=== PATIENT | female | born 1955 | race Caucasian/White ===

== ENCOUNTER 2016-10-16 23:36 | Emergency (ER) | payer OTHER ==
[~2016-10-16] VITALS: Ht 162.6 cm; Wt 64.2 kg
[2016-10-16 23:38] VITALS: BP 154/80; PULSE 69; TEMP 36.5; O2SAT 97; Ht 162.6 cm; Wt 64.2 kg
[2016-10-16] MEDS ORDERED: CIPROFLOXACIN 500 MG TAB PO STA (23:58)
[2016-10-16] MEDS ORDERED: PHENAZOPYRIDINE HCL 200 MG TAB PO STA (23:58)
--- NOTE | 2016-10-16 23:59 | EMERGENCY ROOM VISIT NOTE ---
History Report prepared by Neelam: Jose Santos Under the Supervision of: Dr. Jc Payton M.D. First contact with patient: 23:50 Chief Complaint: URINARY SYMPTOMS Stated Complaint: VOIDING FLUID PINK IN COLOR Nursing Triage Summary: pt reports frequency, urgency and burning since 1500. hx of UTIs and kidney stones History of Present Illness The patient is a 60 year old female who presents to the Emergency Room with complaints of persistent burning and increased frequency of urination that began yesterday at 1500, 33 hours prior to arrival. The patient states that she has a history of bladder infections and has been dealing with bladder and lower abdominal discomfort for the past month. This episode does feel like the bladder infections she has had in the past. The patient is experiencing minimal pain in her left flank as well. She noted that the last time she had a bladder infection she was given Bactrim, which caused her tongue to swell slightly. She is not on any chronic infection antibiotics. 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 A total of 6 systems reviewed and were otherwise negative. Past Medical & Surgical Medical Problems: (1) Bladder infection Family History No pertinent family history, secondary to case. Social History Smoking Status: Never Smoker Alcohol Use: none Marital Status: Occupation Status: employed Current/Historical Medications Scheduled Ciprofloxacin Hcl (Cipro), 500 MG PO BID Scheduled PRN Phenazopyridine HCl (Pyridium), 200 MG PO TID PRN for Frequency/Burning w/ Urination Miscellaneous Medications None (Patient States No Home Meds) Allergies Coded Allergies: Tramadol (Verified Adverse Reaction, Unknown, ., 10/11/11) Physical Exam Vital Signs Date Time Temp Pulse Resp B/P Pulse Ox O2 Delivery O2 Flow Rate FiO2 10/16/16 23:38 36.5 69 18 154/80 97 Room Air Physical Exam GENERAL: Patient is well appearing and in no acute distress. HEENT: No acute trauma, normocephalic atraumatic, mucous membranes moist, no nasal congestion, no scleral icterus. NECK: No stridor, no adenopathy, no meningismus, trachea is midline. LUNGS: No dyspnea. Clear to auscultation and equal bilaterally. No wheeze, no rhonchi. HEART: Regular rate and rhythm. No murmurs, rubs, gallops appreciated. ABDOMEN: Soft, nontender, bowel sounds positive, no masses appreciated, no peritonitis. BACK: No midline tenderness, no CVA tenderness NEUROLOGIC: Alert and oriented, no acute motor or sensory deficits, no focal weakness, cranial nerves grossly intact. SKIN: No rash, no jaundice, no diaphoresis. Medical Decision & Procedures Laboratory Results Test 10/16/16 23:44 Urine Color ORANGE Urine Appearance TURBID (CLEAR) Urine pH 6.5 (4.5-7.5) Urine Specific [place] 1.017 (1.000-1.030) Urine Protein 2+ (NEG) Urine Glucose (UA) NEG (NEG) Urine Ketones TRACE (NEG) Urine Occult Blood 3+ (NEG) Urine Nitrite POS (NEG) Urine Bilirubin NEG (NEG) Urine Urobilinogen NEG (NEG) Urine Leukocyte Esterase LARGE (NEG) Urine WBC (Auto) >30 /hpf (0-5) Urine RBC (Auto) >30 /hpf (0-4) Urine Hyaline Casts (Auto) 1-5 /lpf (0-5) Urine Epithelial Cells (Auto) 0-5 /lpf (0-5) Urine Bacteria (Auto) 4+ (NEG) Urine Yeast (Auto) (NONE PRSENT) Laboratory results as reviewed by me. Medications Administered Medications (Trade) Dose Ordered Sig/Brooks Route Start Time Stop Time Status Last Admin Dose Admin Ciprofloxacin (Cipro Tab) 500 mg NOW STAT PO 10/16/16 23:58 10/16/16 23:59 DC 10/17/16 00:10 500 MG Phenazopyridine HCl (Pyridium Tab) 200 mg NOW STAT PO 10/16/16 23:58 10/16/16 23:59 DC 10/17/16 00:10 200 MG Phenazopyridine HCl (Phenazopyridine HCl 200MG Home Pack) 1 homepack UD ONCE PO 10/17/16 00:00 10/17/16 00:01 DC 10/17/16 00:10 1 HOMEPACK ED Course 2352: The patient was evaluated in room A9. A complete history and physical exam was performed. 2358: Ordered Pyridium Tablet 200 mg PO, Ciprofloxacin 500 mg PO. 0000: Ordered Phenazopyridine 1 homepack PO. 0005: I reevaluated the patient at this time. I discussed results and discharge instructions: she verbalized understanding and agreement. The patient is ready for discharge. Medical Decision Differential: UTI, Urethritis, Pyelonephritis, STI, Herpetic, Vaginitis, Hyperglycemia, Yeast, PID, Cystitis, Hemorrhagic Cystitis, amongst other pathologies entertained. 60 yr old female arrives with complaint of UTI symptoms. Long history of UTI's and she admits this is similar to previous. Mild right side pain without CVA TTP, no fevers, no vomiting. She looks well and is not septic. Wishes to just empirically treat with Cipro (allergic bactrim, just took keflex last month, and flank pain avoid macrobid). Will add on Pyridium. Impression Primary Impression: Urinary tract infection Scribe Attestation The scribe's documentation has been prepared under my direction and personally reviewed by me in its entirety. I confirm that the note above accurately reflects all work, treatment, procedures, and medical decision making performed by me. Departure Information Dispostion Home / Self-Care Prescriptions Phenazopyridine HCl (Pyridium) 200 Mg Tab 200 MG PO TID Y for Frequency/Burning w/Urination, #9 TAB Prov: Jc Payton M.D. 10/17/16 Ciprofloxacin Hcl (CIPRO) 500 Mg Tab 500 MG PO BID, #14 TAB Prov: Jc Payton M.D. 10/17/16 Patient Instructions [facility], Urinary Tract Infecs Women Problem Qualifiers Primary Impression: Urinary tract infection Urinary tract infection type: acute cystitis Hematuria presence: with hematuria Qualified Codes: N30.01 - Acute cystitis with hematuria
[2016-10-17] MEDS ORDERED: PHENAZOPYRIDINE HOME PACK 200 MG VIAL PO ONE
[2016-10-17] MEDS ORDERED: CIPR-255 PO (00:01)
[2016-10-17] MEDS ORDERED: PHEN-876 PO (00:01)
[2016-10-17 00:14] LABS: URINE APPEARANCE TURBID (CLEAR); URINE BILIRUBIN NEG (NEG); URINE COLOR ORANGE; URINE EPITHELIAL CELL AUTO 0-5 /lpf (0-5); URINE NITRITE POS (NEG); URINE PH 6.5 (4.5-7.5); URINE SPECIFIC GRAVITY 1.017 (1.000-1.030); UROBILINOGEN NEG (NEG); ZZUR CULT IF INDIC CLEAN CATCH YES
[2016-10-17 00:18] LABS: MANUAL MICROSCOPIC REQUIRED? NO; REVIEW REQ? YES
== END 2016-10-17 00:15 | disposition home or self-care (01) ==
LOC: C.EDB 23:37 → C.EDA 10-17 00:15
DX: N30.01 Acute cystitis with hematuria (principal)